=== PATIENT | male | born 1980 | race Caucasian/White ===

== ENCOUNTER 2017-05-19 16:40 | Emergency (ER) | payer OTHER ==
[2017-05-19 16:47] VITALS: BP 144/95; PULSE 102; TEMP 97.8; BMI 26.6
[2017-05-19] MEDS ORDERED: SODIUM CHLORIDE 1,000 ML IV STA (18:13)
--- NOTE | 2017-05-19 18:21 | PDOC ---
History of Present Illness - General Chief Complaint: Pain Stated Complaint: LEFT HIP PAIN Time Seen by Provider: 05/19/17 17:50 History Source: Patient Exam Limitations: No Limitations - History of Present Illness Initial Comments: 05/19/17 21:01 37 yr beatriz significant history of diverticulitus, fatty liver, elevated liver enzymes presents with swelling and pain to the left flank area after swinging the baseball bat playing baseball today. Pt states he has had this before. pt denies fever, denies blunt trauma no vomiting or chills. Past History - Past Medical History Allergies/Adverse Reactions: Allergies Allergy/AdvReac Type Severity Reaction Status Date / Time Penicillins Allergy Verified 05/19/17 16:47 Home Medications: Ambulatory Orders Olmesartan Medoxomil [Benicar (Nf)] 20 mg PO DAILY 05/19/17 GI Disorders: Yes (UC) - Suicide/Smoking/Psychosocial Hx Smoking History: Never smoked Information on smoking cessation initiated: No Hx Alcohol Use: Yes (occasioanal) Drug/Substance Use Hx: No Substance Use Type: None *Physical Exam - Vital Signs Last Vital Signs Temp Pulse Resp BP Pulse Ox 97.8 F 102 H 19 144/95 99 05/19/17 16:44 05/19/17 16:44 05/19/17 16:44 05/19/17 16:44 05/19/17 16:44 - Physical Exam General Appearance: Yes: Nourished, Appropriately Dressed HEENT: positive: EOMI, BRANDON, Normal ENT Inspection, TMs Normal, Pharynx Normal Neck: positive: Supple. negative: Tender Respiratory/Chest: positive: Lungs Clear, Normal Breath Sounds Cardiovascular: positive: Regular Rhythm, Regular Rate Gastrointestinal/Abdominal: positive: Normal Bowel Sounds, Soft, Distended ( left side swelling , ttp ) Musculoskeletal: positive: Normal Inspection, Other (left flank with swollen tender area around the lateral abdominal wall ) Extremity: positive: Normal Capillary Refill, Normal Inspection, Normal Range of Motion Integumentary: positive: Normal Color, Dry, Warm Neurologic: positive: Fully Oriented, Alert, Normal Mood/Affect, Normal Response , Motor Strength 5/5 ED Treatment Course - LABORATORY CBC & Chemistry Diagram: 05/19/17 18:00 05/19/17 18:00 - RADIOLOGY Radiology Studies Ordered: Category Date Time Status ABDOMEN & PELVIS CT WITH CONTR [CT] Stat CT Scan 05/19/17 18:13 Ordered ABDOMEN & PELVIS CT WITH CONTR [CT] Stat CT Scan 05/19/17 18:13 Stop Req Medical Decision Making - Medical Decision Making 05/19/17 18:24 cc: pt states he swung the bat and felt pain and swelling to the left side flank area, pt denies direct trauma pt states this has happened in the past last week same mechanism of injury and felt swelling, bruising to the area and pain pt concerned he has diverticulitus denies fever chills no diarrhea or vomiting will check labs, get ct 05/19/17 19:29 pt went to cat scan and refused the IV contrast. will get ct without contrast. *DC/Admit/Observation/Transfer Diagnosis at time of Disposition: Hematoma - Discharge Dispostion Disposition: HOME Condition at time of disposition: Improved - Referrals Referrals: Kaykay Singh MD [Primary Care Provider] - - Patient Instructions Additional Instructions: follow with your doctor in 2-3 days for follow up no heavy lifting, bending or sports until seen by your doctor take motrin 800mg every 6hrs for pain as needed apply ice pack every 2hrs for 20 minutes for the next 2 days while awake
[2017-05-19 18:31] LABS: MCH 25.9 pg (25.7-33.7); MCHC 32.1 g/dl (32.0-35.9); MEAN CELL VOLUME 80.6 fl (80-96); MEAN PLT VOLUME 7.4 fl (7.5-11.1); PLATELET COUNT 366 K/MM3 (134-434); RDW 18.3 % (11.9-15.9); WHITE BLOOD COUNT 9.6 K/mm3 (4.0-10.0)
[2017-05-19] MEDS ORDERED: KETOROLAC TROMETHAMINE 30 MG/1 ML VIAL IVPUSH ONE (18:35)
[2017-05-19] MEDS ORDERED: KETOROLAC TROMETHAMINE 30 MG/1 ML VIAL ONE (18:37)
[2017-05-19 18:43] LABS: ALBUMIN 3.7 g/dl (3.4-5.0); ALK PHOS 99 U/L (45-117); ANION GAP 10 (8-16); BILIRUBIN,TOTAL 0.6 mg/dL (0.2-1.0); CALCIUM 8.7 mg/dL (8.5-10.1); CO2 24 mmol/L (21-32); CREATININE 0.7 mg/dL (0.7-1.3); GLUCOSE,RANDOM 88 mg/dL (74-106); SGPT/ALT 103 U/L (12-78); TOT PROT 7.6 g/dl (6.4-8.2)
[2017-05-19 18:44] LABS: SGOT/AST 102 U/L (15-37)
[2017-05-19 19:23] LABS: URINE APPEARANCE CLEAR; URINE BILIRUBIN NEGATIVE (NEGATIVE); URINE BLOOD 1+ (NEGATIVE); URINE COLOR YELLOW; URINE GLUCOSE (UA) NEGATIVE (NEGATIVE); URINE KETONE 1+ (NEGATIVE); URINE NITRITE NEGATIVE (NEGATIVE); URINE PROTEIN NEGATIVE (NEGATIVE); URINE UROBILINOGEN NEGATIVE mg/dL (0.2-1.0)
[2017-05-19 19:53] LABS: URINE MUCUS RARE; URINE RBC <1 /hpf (0-3); URINE WBC <1 /hpf (3-5)
[2017-05-20 08:11] LABS: URINE LEUK ESTERASE Negative (NEGATIVE)
== END 2017-05-19 21:15 | disposition home or self-care (01) ==
LOC: JERFT 16:40
PROC: 3E0333Z Introduction of Anti-inflammatory into Peripheral Vein, Percutaneous Approach (ICD-10-PCS; principal; 2017-05-19)
PROC: 3E0337Z Introduction of Electrolytic and Water Balance Substance into Peripheral Vein, Percutaneous Approach (ICD-10-PCS; 2017-05-19)
DX: M79.81 Nontraumatic hematoma of soft tissue (principal); K76.0 Fatty (change of) liver, not elsewhere classified; R94.5 Abnormal results of liver function studies; Z88.0 Allergy status to penicillin; Z87.19 Personal history of other diseases of the digestive system
CPT/HCPCS: 36415; 74176-TC; 80053; 81003; 81015; 85027; 99281-25

== ENCOUNTER 2017-08-14 22:37 | Emergency (ER) | payer OTHER ==
[2017-08-14 22:44] VITALS: BP 155/83; PULSE 85; TEMP 97.7; BMI 25.8
--- NOTE | 2017-08-15 01:25 | PDOC ---
History of Present Illness - General History Source: Patient Exam Limitations: No Limitations - History of Present Illness Initial Comments: 08/15/17 02:17 The patient is a 37 year old male, with a significant past medical history of Crohns Disease and ulcerative colitis, who presents to the emergency department with, a rash. The patient reports a rash on arms, legs, back, and testicle. He reports his rash to be itchy. He denies any recent fevers, chills, headache or dizziness. He denies any recent nausea, vomit, diarrhea or constipation. He denies any recent chest pain or shortness of breath. He denies any recent dysuria, frequency, urgency or hematuria. Allergies: NKA Past surgical history: None reported. Social History: Nonsmoker. Denies EtOH use and recreational drug use. <Hanny Islas - Last Filed: 08/15/17 04:41> <Kalani Moore - Last Filed: 08/15/17 20:18> - General Chief Complaint: Rash Stated Complaint: ALLERGIC REACTION Time Seen by Provider: 08/14/17 22:48 Past History <Hanny Islas - Last Filed: 08/15/17 04:41> - Past Medical History COPD: No GI Disorders: Yes (UC) - Suicide/Smoking/Psychosocial Hx Smoking History: Never smoked Hx Alcohol Use: Yes (occasioanal) Drug/Substance Use Hx: No Substance Use Type: None <Kalani Moore - Last Filed: 08/15/17 20:18> - Past Medical History Allergies/Adverse Reactions: Allergies Allergy/AdvReac Type Severity Reaction Status Date / Time Penicillins Allergy Verified 08/14/17 22:41 Home Medications: Ambulatory Orders Olmesartan Medoxomil [Benicar (Nf)] 20 mg PO DAILY 05/19/17 Permethrin 5% Topical Cream [Elimite -] 1 applic TP ONCE #30 g 08/15/17 Review of Systems - Review of Systems Able to Perform ROS?: Yes Comments:: 08/15/17 02:17 GENERAL/CONSTITUTIONAL: No fever or chills. No weakness. HEAD, EYES, EARS, NOSE AND THROAT: No change in vision. No ear pain or discharge. No sore throat. CARDIOVASCULAR: No chest pain or shortness of breath. RESPIRATORY: No cough, wheezing, or hemoptysis. GASTROINTESTINAL: No nausea, vomiting, diarrhea or constipation. GENITOURINARY: No dysuria, frequency, or change in urination. MUSCULOSKELETAL: No joint or muscle swelling or pain. No neck or back pain. SKIN: +Rash. NEUROLOGIC: No headache, vertigo, loss of consciousness, or change in strength/ sensation. ENDOCRINE: No increased thirst. No abnormal weight change. HEMATOLOGIC/LYMPHATIC: No anemia, easy bleeding, or history of blood clots. ALLERGIC/IMMUNOLOGIC: No hives or skin allergy. <Hanny Islas - Last Filed: 08/15/17 04:41> *Physical Exam - Vital Signs Last Vital Signs Temp Pulse Resp BP Pulse Ox 97.7 F 85 18 155/83 99 08/14/17 22:41 08/14/17 22:41 08/14/17 22:41 08/14/17 22:41 08/14/17 22:41 - Physical Exam Comments: 08/15/17 04:41 GENERAL: Awake, alert, and fully oriented, in no acute distress HEAD: No signs of trauma EYES: PERRLA, EOMI, sclera anicteric, conjunctiva clear ENT: Auricles normal inspection, hearing grossly normal, nares patent, oropharynx clear without exudates. Moist mucosa NECK: Normal ROM, supple, no lymphadenopathy, JVD, or masses LUNGS: Breath sounds equal, clear to auscultation bilaterally. No wheezes, and no crackles HEART: Regular rate and rhythm, normal S1 and S2, no murmurs, rubs or gallops ABDOMEN: Soft, nontender, normoactive bowel sounds. No guarding, no rebound. No masses EXTREMITIES: Normal range of motion, no edema. No clubbing or cyanosis. No cords, erythema, or tenderness NEUROLOGICAL: Cranial nerves II through XII grossly intact. Normal speech, normal gait SKIN: +Scabies rash bilateral arms, bilateral legs, back, and testicles. Warm, Dry, normal turgor, no lesions noted. <Hanny Islas - Last Filed: 08/15/17 04:41> - Vital Signs Last Vital Signs Temp Pulse Resp BP Pulse Ox 97.7 F 85 18 155/83 99 08/14/17 22:41 08/14/17 22:41 08/14/17 22:41 08/14/17 22:41 08/14/17 22:41 <Kalani Moore - Last Filed: 08/15/17 20:18> Medical Decision Making - Medical Decision Making 08/15/17 20:17 Pt comes with rash all over that has been getting worse. Pt likely has scabies and he will be treated for it. No other complaints. <Kalani Moore - Last Filed: 08/15/17 20:18> *DC/Admit/Observation/Transfer - Attestations Scribe Attestion: 08/15/17 02:31 Documentation prepared by Hanny Islas, acting as medical imaging technician for Kalani Moore MD. <Hanny Islas - Last Filed: 08/15/17 04:41> - Discharge Dispostion Admit: No <Kalani Moore - Last Filed: 08/15/17 20:18> Diagnosis at time of Disposition: Scabies infestation - Discharge Dispostion Disposition: HOME Condition at time of disposition: Stable - Prescriptions Prescriptions: Permethrin 5% Topical Cream [Elimite -] 1 applic TP ONCE #30 g - Patient Instructions Printed Discharge Instructions: DI for Scabies
== END 2017-08-15 02:00 | disposition home or self-care (01) ==
LOC: JER 22:37
DX: B86 Scabies (principal)
CPT/HCPCS: 99281-25

== ENCOUNTER 2023-12-10 09:27 | Emergency (ER) | payer OTHER ==
[2023-12-10 09:39] VITALS: BP 114/77; PULSE 86; RESP 17; TEMP 97.3; BMI 23.6
[2023-12-10] MEDS ORDERED: ACETAMINOPHEN 500 MG TABLET (FP) ONE (10:21)
[2023-12-10] MEDS: ACETAMINOPHEN 500 MG TABLET (FP) PO ONE (10:22)
== END 2023-12-10 11:21 | disposition home or self-care (01) ==
LOC: JERFT 09:27
DX: S46.911A Strain of unspecified muscle, fascia and tendon at shoulder and upper arm level, right arm, initial encounter (principal); X50.0XXA Overexertion from strenuous movement or load, initial encounter; Y99.0 Civilian activity done for income or pay
CPT/HCPCS: 73030-TC-RT-FY; 99283-25

== ENCOUNTER 2024-11-16 06:48 | Day surgery (SDC) | payer BC ==
[2024-11-10 12:11] VITALS: BMI 23.9
[2024-11-16 11:19] VITALS: TEMP 98
[2024-11-16 12:05] VITALS: BP 110/68; PULSE 70; RESP 14
== END 2024-11-16 12:35 | disposition home or self-care (01) ==
LOC: JASU-ENDO 06:48
PROVIDERS: ATTEND Internal Medicine Gastroenterology
PROC: 0DBN8ZX Excision of Sigmoid Colon, Via Natural or Artificial Opening Endoscopic, Diagnostic (ICD-10-PCS; principal; 2024-11-16 11:00)
DX: K51.90 Ulcerative colitis, unspecified, without complications (principal); Z98.0 Intestinal bypass and anastomosis status; D12.6 Benign neoplasm of colon, unspecified
CPT/HCPCS: 88305-TC

== ENCOUNTER 2025-03-09 08:55 | Emergency (ER) | payer BC ==
[2025-03-09 09:06] VITALS: BP 126/79; PULSE 96; RESP 20; TEMP 98.1; BMI 22.9
[2025-03-09] MEDS ORDERED: KETOROLAC TROMETHAMINE 30 MG/1 ML VIAL ONE (10:21)
[2025-03-09] MEDS ORDERED: ACETAMINOPHEN 500 MG TABLET (FP) ONE (10:22)
[2025-03-09] MEDS ORDERED: LIDOCAINE 4% PATCH TP ONE (10:22)
[2025-03-09] MEDS: ACETAMINOPHEN 500 MG TABLET (FP) PO ONE (10:35)
[2025-03-09] MEDS: LIDOCAINE 4% PATCH TP ONE (10:38)
[2025-03-09] MEDS: KETOROLAC TROMETHAMINE 30 MG/1 ML VIAL IM ONE (10:38)
[2025-03-09 11:57] LABS: URINE APPEARANCE CLEAR; URINE BILIRUBIN 1+ (NEGATIVE); URINE COLOR DK YELLOW; URINE GLUCOSE (UA) NEGATIVE (NEGATIVE); URINE KETONE NEGATIVE (NEGATIVE); URINE LEUK ESTERASE NEGATIVE (NEGATIVE); URINE NITRITE NEGATIVE (NEGATIVE); URINE PROTEIN TRACE (NEGATIVE); URINE UROBILINOGEN 1.0 mg/dL (0.2-1.0)
[2025-03-09] MEDS ORDERED: LIDOCAINE PATCH REMOVAL MC SCH (22:00)
== END 2025-03-09 12:56 | disposition home or self-care (01) ==
LOC: JERFT 08:55
PROC: 3E0233Z Introduction of Anti-inflammatory into Muscle, Percutaneous Approach (ICD-10-PCS; principal; 2025-03-09)
DX: M54.50 Low back pain, unspecified (principal); M54.6 Pain in thoracic spine; R80.9 Proteinuria, unspecified; R10.9 Unspecified abdominal pain
CPT/HCPCS: 71046-TC-FY; 74176-TC; 81003; 87086; 99285-25

== ENCOUNTER 2025-03-12 01:50 | Emergency (ER) | payer BC ==
[2025-03-12 02:01] VITALS: BP 111/82; PULSE 95; RESP 18; TEMP 98.2; BMI 22.9
[2025-03-12] MEDS ORDERED: MAGNESIUM OXIDE 400 MG TABLET (FP) ONE (03:53)
[2025-03-12] MEDS ORDERED: METHOCARBAMOL 500 MG TABLET ONE (03:53)
[2025-03-12] MEDS ORDERED: SIMETHICONE 80 MG TAB.CHEW (FP) ONE (03:53)
[2025-03-12] MEDS ORDERED: VITAMIN B COMP W-C 1 EA TABLET (NEPHRO-VITE) PO SCH ×2 (03:54→10:00)
[2025-03-12] MEDS: METHOCARBAMOL 500 MG TABLET PO ONE (04:06)
[2025-03-12] MEDS: MAGNESIUM OXIDE 400 MG TABLET (FP) PO ONE (04:06)
[2025-03-12] MEDS: SIMETHICONE 80 MG TAB.CHEW (FP) PO ONE (04:06)
== END 2025-03-12 04:26 | disposition home or self-care (01) ==
LOC: JER 01:50
DX: M79.2 Neuralgia and neuritis, unspecified (principal); K56.50 Intestinal adhesions [bands], unspecified as to partial versus complete obstruction; R10.9 Unspecified abdominal pain
CPT/HCPCS: 99283-25

== ENCOUNTER 2025-03-16 15:25 | Inpatient (IN) | payer BC ==
[2025-03-16] MEDS ORDERED: ACETAMINOPHEN INJECTION 100 ML ONE (16:16)
[2025-03-16] MEDS: SODIUM CHLORIDE 0.9% 500 ML INFUS.BAG IV ONE (16:22)
[2025-03-16] MEDS: ACETAMINOPHEN 1000 MG/100 ML BAG IVPB ONE (16:22)
[2025-03-16 16:27] LABS: MCHC 33.0 g/dl (32.3-36.5); MEAN CELL VOLUME 86.7 fl (79.0-92.2); MEAN PLT VOLUME 9.9 fl (9.4-12.4); RDW 14.6 % (12.1-15.9)
[2025-03-16 16:30] LABS: EPI CELLS 1 /uL (0-25.1); HYALINE CASTS 0 /uL (0-3.1); URINE APPEARANCE CLEAR; URINE BACTERIA 3 /uL (0-1359); URINE BILIRUBIN 1+ (NEGATIVE); URINE COLOR DK YELLOW; URINE GLUCOSE (UA) NEGATIVE (NEGATIVE); URINE KETONE NEGATIVE (NEGATIVE); URINE LEUK ESTERASE TRACE (NEGATIVE); URINE NITRITE NEGATIVE (NEGATIVE); URINE PROTEIN TRACE (NEGATIVE); URINE RBC 9 /uL (0-23.9); URINE UROBILINOGEN 1.0 mg/dL (0.2-1.0); URINE WBC 2 /uL (0-25.8)
[2025-03-16 16:41] LABS: CO2 29.0 mmol/L (21-32); GLUCOSE,RANDOM 121.0 mg/dL (74-106)
[2025-03-16 16:44] LABS: CREATININE 0.9 mg/dL (0.55-1.3); SGOT/AST 190.0 U/L (15-37); SGPT/ALT 120.0 U/L (13-61)
[2025-03-16 16:45] LABS: TOT PROT 6.5 g/dl (6.4-8.2)
[2025-03-16 16:46] LABS: ALK PHOS 226.0 U/L (45-117)
[2025-03-16] MEDS ORDERED: ONDANSETRON 4 MG/2 ML VIAL ONE (17:37)
[2025-03-16] MEDS: ONDANSETRON 4 MG/2 ML VIAL IVPUSH ONE (17:38)
[2025-03-16] MEDS ORDERED: MORPHINE SULFATE 2 MG/ML SYRINGE ONE ×2 (18:22→23:04)
[2025-03-16] MEDS: morphine CARPU-JECT 2 MG/1 ML DISP.SYRIN IVPUSH ONE (18:25)
[2025-03-16] MEDS: SODIUM CHLORIDE 1,000 ML IV SCH (21:51)
[2025-03-16] MEDS: morphine CARPU-JECT 2 MG/1 ML DISP.SYRIN IVPUSH PRN (23:06)
[2025-03-17] MEDS: KETOROLAC TROMETHAMINE 15 MG/ML VIAL IVPUSH PRN (02:31)
[2025-03-17 09:14] LABS: MCHC 33.1 g/dl (32.3-36.5); MEAN CELL VOLUME 85.5 fl (79.0-92.2); MEAN PLT VOLUME 10.3 fl (9.4-12.4); RDW 14.8 % (12.1-15.9)
[2025-03-17 10:02] LABS: CO2 25.0 mmol/L (21-32); GLUCOSE,RANDOM 71.0 mg/dL (74-106)
[2025-03-17 10:05] LABS: SGPT/ALT 100.0 U/L (13-61)
[2025-03-17 10:06] LABS: CREATININE 0.8 mg/dL (0.55-1.3); SGOT/AST 164.0 U/L (15-37)
[2025-03-17 10:07] LABS: TOT PROT 5.4 g/dl (6.4-8.2)
[2025-03-17 10:16] LABS: ALK PHOS 186.0 U/L (45-117)
[2025-03-17 11:24] LABS: INR 1.93 (0.83-1.09); PROTHROMBIN TIME (PATIENT) 21.2 SEC (9.7-13.0)
[2025-03-17] MEDS: PHYTONADIONE 10 MG/1 ML AMP IVPB ONE (11:46)
[2025-03-17] MEDS ORDERED: FENTANYL CITRATE/PF 50 MCG/ML VIAL ONE (13:58)
[2025-03-17] MEDS ORDERED: MIDAZOLAM HCL 2 MG/2 ML SINGLE DOSE VIAL ONE (13:58)
[2025-03-17] MEDS: MIDAZOLAM HCL 2 MG/2 ML SINGLE DOSE VIAL IVPUSH ONE (14:25)
[2025-03-17] MEDS: SODIUM CHLORIDE 250 ML IV ONE (14:30)
[2025-03-17 19:14] LABS: HEPATITIS B SURF AG NON-MATERN NON-REACTIVE (NONREACTIVE)
[2025-03-18 07:32] LABS: MCHC 34.0 g/dl (32.3-36.5); MEAN CELL VOLUME 84.6 fl (79.0-92.2); MEAN PLT VOLUME 10.6 fl (9.4-12.4); RDW 14.9 % (12.1-15.9)
[2025-03-18 07:37] LABS: INR 1.7 (0.83-1.09); PROTHROMBIN TIME (PATIENT) 18.7 SEC (9.7-13.0)
[2025-03-18 07:51] LABS: CO2 24.0 mmol/L (21-32); GLUCOSE,RANDOM 93.0 mg/dL (74-106)
[2025-03-18 07:54] LABS: CREATININE 0.7 mg/dL (0.55-1.3); SGOT/AST 163.0 U/L (15-37); SGPT/ALT 91.0 U/L (13-61)
[2025-03-18 07:55] LABS: TOT PROT 5.1 g/dl (6.4-8.2)
[2025-03-18 07:57] LABS: ALK PHOS 209.0 U/L (45-117)
[2025-03-18] MEDS: ENOXAPARIN NA (PORCINE) 40 MG/0.4 ML DISP.SYRIN SQ SCH (09:50)
[2025-03-19 03:30] LABS: HCV DIAGNOSTIC IN-HOUSE W/RFLX NON-REACTIVE (NONREACTIVE)
[2025-03-19 04:33] LABS: HIV INTERPRETATION NEGATIVE (NEGATIVE)
[2025-03-19 07:47] LABS: MCHC 32.6 g/dl (32.3-36.5); MEAN CELL VOLUME 86.8 fl (79.0-92.2); MEAN PLT VOLUME 10.4 fl (9.4-12.4); RDW 15.3 % (12.1-15.9)
[2025-03-19 09:17] LABS: CO2 25.0 mmol/L (21-32); GLUCOSE,RANDOM 84.0 mg/dL (74-106)
[2025-03-19 09:20] LABS: CREATININE 0.7 mg/dL (0.55-1.3); SGOT/AST 146.0 U/L (15-37); SGPT/ALT 85.0 U/L (13-61)
[2025-03-19 09:22] LABS: TOT PROT 5.1 g/dl (6.4-8.2)
[2025-03-19 09:23] LABS: ALK PHOS 198.0 U/L (45-117)
[2025-03-20] MEDS: SODIUM CHLORIDE 1 GM TABLET PO SCH ×2 (09:30→16:03)
[2025-03-20 09:52] LABS: MCHC 32.8 g/dl (32.3-36.5); MEAN CELL VOLUME 86.6 fl (79.0-92.2); MEAN PLT VOLUME 9.9 fl (9.4-12.4); RDW 15.5 % (12.1-15.9)
[2025-03-20 09:57] LABS: INR 1.61 (0.83-1.09); PROTHROMBIN TIME (PATIENT) 17.5 SEC (9.7-13.0)
[2025-03-20 10:39] LABS: CO2 25.0 mmol/L (21-32); GLUCOSE,RANDOM 81.0 mg/dL (74-106)
[2025-03-20 10:42] LABS: CREATININE 0.67 mg/dL (0.55-1.3); SGOT/AST 160.0 U/L (15-37); SGPT/ALT 91.0 U/L (13-61)
[2025-03-20 10:52] LABS: ALK PHOS 251.0 U/L (45-117); TOT PROT 5.7 g/dl (6.4-8.2)
[2025-03-20] MEDS: SCOPOLAMINE HYDROBROMIDE 1 PATCH PATCH.TD72 TD SCH (10:55)
[2025-03-20] MEDS: ONDANSETRON 4 MG/2 ML VIAL IVPUSH ONE (10:55)
[2025-03-20] MEDS: FUROSEMIDE 40 MG/4 ML INJECTABLE VIAL IVPUSH ONE ×2 (16:03→16:06)
[2025-03-20 18:15] LABS: GLUCOSE,RANDOM 102.0 mg/dL (74-106)
[2025-03-20 18:17] LABS: CO2 20.0 mmol/L (21-32)
[2025-03-20 18:21] LABS: CREATININE 0.58 mg/dL (0.55-1.3)
[2025-03-21 08:57] LABS: MCHC 33.0 g/dl (32.3-36.5); MEAN CELL VOLUME 85.6 fl (79.0-92.2); MEAN PLT VOLUME 10.1 fl (9.4-12.4); RDW 15.8 % (12.1-15.9)
[2025-03-21 09:28] LABS: GLUCOSE,RANDOM 84.0 mg/dL (74-106)
[2025-03-21 09:29] LABS: TOT PROT 4.9 g/dl (6.4-8.2)
[2025-03-21 09:30] LABS: CO2 22.0 mmol/L (21-32)
[2025-03-21 09:32] LABS: ALK PHOS 226.0 U/L (40-150)
[2025-03-21 09:34] LABS: SGOT/AST 153.0 U/L (5-34); SGPT/ALT 70.0 U/L (0-55)
[2025-03-21 09:35] LABS: CREATININE 0.61 mg/dL (0.55-1.3)
[2025-03-21] MEDS: NAPH,MB-DB/K PH,MBDB POWDER PACKET PO SCH (15:15)
[2025-03-21] MEDS: SODIUM CHLORIDE 1,000 ML IV SCH (15:20)
[2025-03-21] MEDS: SODIUM CHLORIDE 1 GM TABLET PO SCH (22:00)
[2025-03-22 07:55] LABS: MCHC 32.8 g/dl (32.3-36.5); MEAN CELL VOLUME 85.5 fl (79.0-92.2); MEAN PLT VOLUME 9.6 fl (9.4-12.4); RDW 16.0 % (12.1-15.9)
[2025-03-22 08:10] LABS: GLUCOSE,RANDOM 104.0 mg/dL (74-106)
[2025-03-22 08:11] LABS: TOT PROT 5.8 g/dl (6.4-8.2)
[2025-03-22 08:12] LABS: CO2 25.0 mmol/L (21-32)
[2025-03-22 08:16] LABS: SGOT/AST 170.0 U/L (5-34)
[2025-03-22 08:17] LABS: ALK PHOS 255.0 U/L (40-150); CREATININE 0.67 mg/dL (0.55-1.3); SGPT/ALT 77.0 U/L (0-55)
[2025-03-22] MEDS: SODIUM CHLORIDE 1 GM TABLET PO SCH (09:32)
[2025-03-22] MEDS: SODIUM PHOSPHATE - 30 MM in SODIUM CHLORIDE 500 ML IVPB ONE (11:32)
[2025-03-22 15:55] VITALS: BMI 25.8
[2025-03-22] MEDS: ACETAMINOPHEN 500 MG TABLET (FP) PO PRN (22:39)
[2025-03-23 07:12] LABS: IMMATURE PLATELET FRACTION # 3.50 x10^3/uL; MCHC 33.2 g/dl (32.3-36.5); MEAN CELL VOLUME 85.3 fl (79.0-92.2); MEAN PLT VOLUME 9.6 fl (9.4-12.4); RDW 16.0 % (12.1-15.9)
[2025-03-23 07:21] LABS: INR 1.64 (0.83-1.09); PROTHROMBIN TIME (PATIENT) 17.9 SEC (9.7-13.0)
[2025-03-23 07:37] LABS: GLUCOSE,RANDOM 88.0 mg/dL (74-106); TOT PROT 5.1 g/dl (6.4-8.2)
[2025-03-23 07:38] LABS: CO2 25.0 mmol/L (21-32)
[2025-03-23 07:42] LABS: CREATININE 0.52 mg/dL (0.55-1.3); SGOT/AST 136.0 U/L (5-34); SGPT/ALT 66.0 U/L (0-55)
[2025-03-23 07:45] LABS: ALK PHOS 211.0 U/L (40-150)
[2025-03-23] MEDS ORDERED: DOXYCYCLINE HYCLATE 100 MG TABLET PO SCH (10:00)
[2025-03-23 12:41] VITALS: RESP 18
[2025-03-23] MEDS: CEPHALEXIN MONOHYDRATE 500 MG CAPSULE (UD) PO SCH (13:46)
[2025-03-23 15:19] VITALS: BP 126/80; PULSE 119; TEMP 97.9
== END 2025-03-23 18:47 | disposition home or self-care (01) | DRG 436 ==
LOC: JER 15:25 → JERBED 20:48 → UNDOADMOB 20:48 → INTOOBSV 20:48 → J8W 23:22 → JERBED 23:22 → J8W 03-17 15:01 → JERBED 03-17 15:10 → J8W 03-17 15:10 → OBSVTOIN 03-18 16:03
PROVIDERS: ADMIT Hospitalist; ATTEND Student in an Organized Health Care Education/Training Program
PROC: 0FB13ZX Excision of Right Lobe Liver, Percutaneous Approach, Diagnostic (ICD-10-PCS; 2025-03-17)
PROC: 0DB68ZX Excision of Stomach, Via Natural or Artificial Opening Endoscopic, Diagnostic (ICD-10-PCS; 2025-03-23)
PROC: 0DB58ZX Excision of Esophagus, Via Natural or Artificial Opening Endoscopic, Diagnostic (ICD-10-PCS; 2025-03-23)
PROC: 0DB98ZX Excision of Duodenum, Via Natural or Artificial Opening Endoscopic, Diagnostic (ICD-10-PCS; principal; 2025-03-23 11:30)
DX: C78.7 Secondary malignant neoplasm of liver and intrahepatic bile duct (principal); B37.81 Candidal esophagitis; E87.1 Hypo-osmolality and hyponatremia; K51.90 Ulcerative colitis, unspecified, without complications; D72.829 Elevated white blood cell count, unspecified; R00.0 Tachycardia, unspecified; E80.6 Other disorders of bilirubin metabolism; E83.39 Other disorders of phosphorus metabolism; N28.1 Cyst of kidney, acquired; I80.8 Phlebitis and thrombophlebitis of other sites; K22.9 Disease of esophagus, unspecified; K25.9 Gastric ulcer, unspecified as acute or chronic, without hemorrhage or perforation; K31.89 Other diseases of stomach and duodenum
CPT/HCPCS: 36415; 47000; 71250-TC; 74177-TC; 74181-TC; 78306-TC; 80048; 80053; 81003; 82105; 82248; 82378; 82436; 82550; 83690; 83735; 83935; 84100; 84133; 84300; 85025; 85610; 86301; 86704; 86707; 86708; 86803; 87086; 87340; 87350; 87389; 87517; 87902; 88300-TC; 88305-TC; 88307-TC; 88312-TC; 88313-TC; 88342-TC; 93005; 93010; 99285-25; A9503; G0378